=== PATIENT | female | born 1990 | race Caucasian/White ===

== ENCOUNTER 2021-11-26 22:38 | Emergency (ER) | payer OTHER ==
[~2021-11-26] VITALS: Ht 165.1 cm; Wt 127.2 kg
[2021-11-26 22:47] VITALS: BP 136/80
[2021-11-26] MEDS ORDERED: ACETAMINOPHEN EXTRA STRENGTH 500 MG TAB PO ONE (22:50)
--- NOTE | 2021-11-26 23:01 | NUR ---
Refused CT head/neck.
--- NOTE | 2021-11-26 23:02 | NUR ---
patient wheeled to radiology for ct head.
--- NOTE | 2021-11-26 23:26 | NUR ---
Md made aware of patient's refusal.
--- NOTE | 2021-11-26 23:53 | NUR ---
Pt cleared for dc with Dr. Perkins. Instructions reinforced to patient and spouse. Verbalizes understanding.
== END 2021-11-26 23:47 | disposition home or self-care (01) ==
LOC: MED 22:38
DX: O9A.212 Injury, poisoning and certain other consequences of external causes complicating pregnancy, second trimester (principal); O26.892 Other specified pregnancy related conditions, second trimester; M54.2 Cervicalgia; Z3A.22 22 weeks gestation of pregnancy; V89.2XXA Person injured in unspecified motor-vehicle accident, traffic, initial encounter; Y93.89 Activity, other specified; Y92.89 Other specified places as the place of occurrence of the external cause; Y99.8 Other external cause status
CPT/HCPCS: 99282